=== PATIENT | female | born 1950 | race Caucasian/White ===

== ENCOUNTER 2017-10-02 12:16 | Day surgery (SDC) | payer MEDICARE, BC ==
[2017-10-02] MEDS ORDERED: MIDAZOLAM 1 MG/ML 2 ML INJ (13:45)
[2017-10-02] MEDS ORDERED: PROPOFOL 20 ML (13:45)
[2017-10-02] MEDS ORDERED: FENTAnyl 50 MCG/ML VIAL (13:45)
== END 2017-10-02 17:12 | disposition home or self-care (01) ==
LOC: GIL 12:16
DX: K21.9 Gastro-esophageal reflux disease without esophagitis (principal); K29.70 Gastritis, unspecified, without bleeding; K64.8 Other hemorrhoids; R19.7 Diarrhea, unspecified; E78.5 Hyperlipidemia, unspecified; I10 Essential (primary) hypertension
CPT/HCPCS: 43239; 87081; 88305